=== PATIENT | female | born 1985 | race Caucasian/White ===

== ENCOUNTER → 2016-08-05 | Outpatient (REF) | payer OTHER ==
[~2016-08-05] MED LIST: ACET50TAOT PO; ALBU83IN INH; COLA100C PO; IBUP800T23 PO; PREN27TA3 PO; PULM0.25 INH; RHINSUS; TUMS500C PO; ZYRT1TAB PO
== END ==
LOC: M LAB REF 09:25
PROVIDERS: ATTEND Specialist
DX: Z12.4 Encounter for screening for malignant neoplasm of cervix (principal)

== ENCOUNTER → 2017-12-10 | Outpatient (CLI) | payer OTHER ==
[2017-12-10 13:23] LABS: BASO # 0.1 10^3/uL (0.0-0.2); BASO % 0.6 % (0.0-1.0); EOS # 0.2 10^3/uL (0.0-0.50); EOS % 2.6 % (0.0-3.0); HEMATOCRIT 42.2 % (36.0-47.0); HEMOGLOBIN 14.5 g/dl (12.0-15.5); IMMATURE GRANULOCYTE % 0.5 % (0-3.0); LYMPH # 1.9 10^3/uL (1.5-4.5); LYMPH % 22.9 % (24.0-44.0); MEAN CORPUSCULAR HEMOGLOBIN 30.5 pg (27.0-33.0); MEAN CORPUSCULAR HGB CONC 34.4 g/dl (32.0-36.5); MEAN CORPUSCULAR VOLUME 88.8 fl (80.0-96.0); MONO # 0.6 10^3/uL (0.0-0.8); NEUTROPHILS # 5.5 10^3/uL (1.8-7.7); NEUTROPHILS % 66.4 % (36.0-66.0); PLATELET COUNT, AUTOMATED 270 10^3/uL (150-450); RED BLOOD COUNT 4.75 10^6/uL (4.00-5.40); RED CELL DISTRIBUTION WIDTH 11.9 % (11.5-14.5); WHITE BLOOD COUNT 8.3 10^3/uL (4.0-10.0)
[2017-12-10 14:58] LABS: RUBELLA IgG QUALITATIVE IMMUNE (IMMUNE)
[2017-12-10 14:59] LABS: HBsAg Prenatal NEGATIVE (NEGATIVE)
[2017-12-10 15:27] LABS: HEPATITIS C VIRUS ABY INDEX 0.3 INDEX (<0.8)
[2017-12-10 15:27] LABS: CHLAMYDIA DNA AMPLIFICATION NEGATIVE (NEGATIVE); GC DNA AMPLIFICATION NEGATIVE (NEGATIVE); HIV 1&2 SCREEN CENTAUR NEGATIVE (NEGATIVE)
== END ==
LOC: M SMT 11:57
DX: Z34.81 Encounter for supervision of other normal pregnancy, first trimester (principal); Z3A.09 9 weeks gestation of pregnancy
CPT/HCPCS: 86762

== ENCOUNTER → 2018-06-19 | Outpatient (REF) | payer OTHER ==
[~2018-06-19] MED LIST changes: +ACET500T15 PO; -ACET50TAOT PO; -COLA100C PO; +COLA100C5 PO; +IBUP1TAB7 PO; -IBUP800T23 PO
== END ==
LOC: M LAB REF 12:55
PROVIDERS: ATTEND Advanced Practice Midwife
DX: Z34.83 Encounter for supervision of other normal pregnancy, third trimester (principal); Z3A.00 Weeks of gestation of pregnancy not specified

== ENCOUNTER 2018-07-19 10:40 | Inpatient (IN) | payer BC ==
[2018-07-19] VITALS (34 sets, daily range): BP systolic 97–144; BP diastolic 55–87
[~2018-07-19] VITALS: Ht 167.6 cm; Wt 101.2 kg
[2018-07-19] MEDS ORDERED: PENICILLIN G POTASSIUM IV 5 MU in D5W MINI-BAG PLUS 100 ML IV STA ×2 (11:17→12:11)
[2018-07-19] MEDS ORDERED: OXYTOCIN DRIP 30 UNITS in APPROPRIATE DILUENT 1 EA IV SCH (11:30)
[2018-07-19] MEDS: LR 1,000 ML IV SCH ×2 (11:55→16:49)
[2018-07-19 12:20] LABS: HEMATOCRIT 37.5 % (36.0-47.0); HEMOGLOBIN 13.2 g/dl (12.0-15.5); MEAN CORPUSCULAR HEMOGLOBIN 31.9 pg (27.0-33.0); MEAN CORPUSCULAR HGB CONC 35.2 g/dl (32.0-36.5); MEAN CORPUSCULAR VOLUME 90.6 fl (80.0-96.0); PLATELET COUNT, AUTOMATED 235 10^3/uL (150-450); RED BLOOD COUNT 4.14 10^6/uL (4.00-5.40); WHITE BLOOD COUNT 10.9 10^3/uL (4.0-10.0)
[2018-07-19] MEDS ORDERED: PULM0.5S INH (12:27)
[2018-07-19] MEDS ORDERED: PENICILLIN G POTASSIUM IV 2.5 MU in APPROPRIATE DILUENT 1 EA IV SCH (15:30)
[2018-07-19] MEDS: PENICILLIN G POTASSIUM IV 2.5 MU in APPROPRIATE DILUENT 1 EA IV SCH ×2 (16:16→20:37)
--- NOTE | 2018-07-19 19:23 | HPE ---
DATE OF ADMISSION: 07/19/2018 REASON FOR ADMISSION: Induction of labor. HISTORY OF PRESENT ILLNESS: Mrs. Meng is a 32-year-old 3, para 2 who presents at 40 weeks 6 days estimated gestational age by her last menstrual period confirmed by first trimester ultrasound here for induction of labor. course has been unremarkable. She initiated care in her first trimester and it has been appropriate throughout. PAST MEDICAL HISTORY: History of asthma. PAST SURGICAL HISTORY: She has had a section. MEDICATIONS: Includes: - Pulmicort - albuterol - vitamins ALLERGIES: SULFA and shellfish. OBSTETRICAL HISTORY: She is a 3, para 2. She has had a section for distress and this was followed by a vaginal after section. She is proven to 8 pounds 10 ounces. SOCIAL HISTORY: Denies any alcohol, tobacco or drug use during her . PHYSICAL EXAMINATION: Vital signs: stable. She is afebrile. General appearance: Well appearing, no acute distress. She has a category one rate tracing. Lungs: Clear to auscultation bilaterally. Cardiovascular: Heart regular rate and rhythm. Abdomen: Gravid, nontender, estimated weight (EFW) 3700 grams. Cervical exam: She is 3 cm dilated, 75% effaced, -3 station. LABORATORY DATA: labs: Blood type is O+, antibody screen is negative. Rubella is immune. RPR is nonreactive. Hepatitis surface antigen negative, HIV is negative. Hepatitis C is nonreactive. Chlamydia, gonorrhea screens are negative. She had a normal 1-hour Glucola. She is GBS positive. ASSESSMENT: 1. Mrs. Mott is a 32-year-old 3, para 2, at 40 weeks and 6 days estimated gestational age here for induction of labor. 2. Reassuring status. 3. History of section. PLAN: 1. Admit to labor and delivery, CBC, RPR, type and screen. 2. Patient has been thoroughly counseled throughout the as well as on admission regarding her mode of delivery. Discussed elective repeat section versus a trial of labor after section with risks and benefits of both. After consultation the patient desires to proceed with a trial of labor after section. Will initiate her induction with Pitocin. She has also been consented for emergency surgery, blood products, and anesthesia and desires to proceed with admission.
[2018-07-19] MEDS ORDERED: FENTANYL 2MCG/ML ROPIVACAINE 0.2% IN 0.9% NACL 100ML IVBAG As Ordered ONE (22:55)
[2018-07-19] MEDS ORDERED: LACTATED RINGER'S 1000 ML IV PRN (23:30)
[2018-07-19] MEDS ORDERED: REFRIGERATOR IV KEYS XX PRN (23:30)
[2018-07-19] MEDS ORDERED: EPIDURAL COMMENT XX SCH (23:30)
[2018-07-19] MEDS ORDERED: ONDANSETRON 4MG/2ML VIAL (J2405) IV PRN (23:30)
[2018-07-19] MEDS ORDERED: FENTANYL/ROPIVACAINE/NACL BAG 100 ML EPIDURAL SCH (23:30)
[2018-07-19] MEDS ORDERED: diphenhydrAMINE INJ 50MG/ML VIAL (J1200) IV PRN (23:30)
[2018-07-19] MEDS ORDERED: NALOXONE INJ 0.4 MG/1 ML VIAL (J2310) IV PRN (23:30)
[2018-07-19] MEDS ORDERED: EPIDURAL/PCA KEYS XX PRN (23:30)
[2018-07-19] MEDS ORDERED: ePHEDrine SULFATE 25 MG/5 ML(5MG/ML) SYRINGE IV PRN (23:30)
[2018-07-20] VITALS (25 sets, daily range): BP systolic 96–153; BP diastolic 51–81
[2018-07-20] MEDS: PENICILLIN G POTASSIUM IV 2.5 MU in APPROPRIATE DILUENT 1 EA IV SCH ×2 (00:30→06:48)
[2018-07-20] MEDS: LR 1,000 ML IV SCH (06:51)
[2018-07-20] MEDS ORDERED: OXYTOCIN DRIP 30 UNITS in APPROPRIATE DILUENT 1 EA IV SCH (10:01)
[2018-07-20] MEDS ORDERED: MEASLES,MUMPS,RUBELLA VACCINE INJ (MMR-II) (90707) SC SCH (10:15)
[2018-07-20] MEDS ORDERED: RHOGAM 300 MCG (1500 IU) INJ (J2790) IM SCH (10:15)
[2018-07-20] MEDS ORDERED: METHYLERGONOVINE MALEATE 0.2 MG TAB PO PRN (10:15)
[2018-07-20] MEDS ORDERED: DOCUSATE SODIUM 100 MG CAP PO PRN (10:15)
[2018-07-20] MEDS ORDERED: ANUSOL HC CREAM 30GM TOP PRN (10:15)
[2018-07-20] MEDS ORDERED: ACETAMINOPHEN 500 MG TAB PO PRN (10:15)
--- NOTE | 2018-07-20 10:33 | DNPDOC ---
[facility] Delivery Note Delivery Note DATE OF DELIVERY: 07/20/2018 at 0931 PREDELIVERY DIAGNOSIS: 41-0/7 weeks' gestation and labor. POST DELIVERY DIAGNOSIS: Delivered. PROCEDURE: Spontaneous vaginal delivery. PATHOLOGICAL TECHNICIAN: Sierra De La Garza CNM, ALONZO ANESTHESIA: epidural ESTIMATED BLOOD LOSS: 250 mL. FINDINGS: 8 pounds 7 ounces; 3840 grams; female infant, Score 9/9, ; prolonged 2nd stage. DELIVERY SUMMARY: Patient is a 22-year-old female who is now a who presented to L&D for an IOL. She received IV Pitocin for her induction and an epidural for pain management. The patient progressed to fully dilated at 0358. She started pushing at 0430 and stopped at 0633. At this time she received an epidural bolus to help with pain and was able to rest until 0808 when pushing was resumed. She pushed to a living female in the OA position with restitution to ROT at 0931. The anterior shoulder delivered with ease and the corpus immediately followed. Meconium noted with delivery of the body. The baby was placed [id number] active and crying with stimulation. The cord was clamped x2 after pulsation ceased and cut by the FOB. The placenta delivered spontaneously and intact at 0931. The vagina and perineum were inspected and found to have a 2nd degree perineal laceration that was repaired with a 3.[address]-1. Mom plans to breastfed her . Both mom and baby were in stable condition. SIERRA DE LA GARZA CNM Jul 20, 2018 10:33
[2018-07-20] MEDS: IBUPROFEN 800 MG TAB PO PRN (14:16)
[2018-07-20] MEDS: DIBUCAINE 1% OINTMENT 30GM TOP PRN (16:00)
[2018-07-21] MEDS: DIBUCAINE 1% OINTMENT 30GM TOP PRN (05:00)
[2018-07-21] MEDS: IBUPROFEN 800 MG TAB PO PRN (05:00)
[2018-07-21 06:01] VITALS: BP 135/73
[2018-07-21] MEDS ORDERED: PRENATAL VITAMINS CHEWABLE TABLET PO SCH (09:00)
== END 2018-07-21 12:35 | disposition home or self-care (01) | DRG 560 ==
LOC: M LDI 10:40 → M OBS 07-20 15:05
PROVIDERS: ADMIT Obstetrics & Gynecology; ATTEND Obstetrics & Gynecology
PROC: 3E033VJ Introduction of Other Hormone into Peripheral Vein, Percutaneous Approach (ICD-10-PCS; 2018-07-19)
PROC: 10E0XZZ Delivery of Products of Conception, External Approach (ICD-10-PCS; principal; 2018-07-20)
PROC: 0KQM0ZZ Repair Perineum Muscle, Open Approach (ICD-10-PCS; 2018-07-20)
DX: O48.0 Post-term pregnancy (principal); O34.211 Maternal care for low transverse scar from previous cesarean delivery; Z37.0 Single live birth; Z3A.40 40 weeks gestation of pregnancy; O70.1 Second degree perineal laceration during delivery

== ENCOUNTER → 2019-01-22 | Outpatient (REF) | payer BC ==
[~2019-01-22] MED LIST changes: +PULM0.5S INH
== END ==
LOC: M LAB REF 17:04
PROVIDERS: ATTEND Advanced Practice Midwife
DX: R30.0 Dysuria (principal)

== ENCOUNTER → 2019-02-15 | Outpatient (REF) | payer BC ==
[2019-02-15 18:21] LABS: CHLAMYDIA DNA AMPLIFICATION NEGATIVE (NEGATIVE); GC DNA AMPLIFICATION NEGATIVE (NEGATIVE)
[2019-02-19 14:22] LABS: HPV LOW VOL RFLX Negative (Negative)
== END ==
LOC: M LAB REF 15:08
PROVIDERS: ATTEND Specialist
DX: Z12.4 Encounter for screening for malignant neoplasm of cervix (principal); Z11.3 Encounter for screening for infections with a predominantly sexual mode of transmission
CPT/HCPCS: 87491; 87591; 87624; G0123

== ENCOUNTER → 2020-06-21 | Outpatient (REF) | payer BC | LOC: M SFHCWAGY 19:03 | PROVIDERS: ATTEND Specialist | DX: Z01.419 Encounter for gynecological examination (general) (routine) without abnormal findings (principal) ==

== ENCOUNTER → 2023-05-26 | Outpatient (CLI) | payer BC ==
[~2023-05-26] MED LIST changes: +ALBU2.5V10 INH; -ALBU83IN INH
[2023-05-26 14:17] LABS: HEMATOCRIT 37.5 % (36.0-47.0); HEMOGLOBIN 13.4 g/dl (12.0-15.5); MEAN CORPUSCULAR HEMOGLOBIN 31.5 pg (27.0-33.0); MEAN CORPUSCULAR HGB CONC 35.7 g/dl (32.0-36.5); MEAN CORPUSCULAR VOLUME 88.2 fl (80.0-96.0); PLATELET COUNT, AUTOMATED 264 10^3/uL (150-450); RED BLOOD COUNT 4.25 10^6/uL (4.00-5.40); WHITE BLOOD COUNT 9.2 10^3/uL (4.0-10.0)
[2023-05-26 15:12] LABS: HIV 1&2 SCREEN NEGATIVE (NEGATIVE)
[2023-05-26 15:20] LABS: HEPATITIS C VIRUS ABY INDEX < 0.02 INDEX (<0.8)
[2023-05-26 16:15] LABS: CHLAMYDIA DNA AMPLIFICATION NEGATIVE (NEGATIVE); GC DNA AMPLIFICATION NEGATIVE (NEGATIVE)
== END ==
LOC: M PLALAB 11:31
PROVIDERS: ATTEND Specialist
DX: Z34.81 Encounter for supervision of other normal pregnancy, first trimester (principal)

== ENCOUNTER → 2023-11-03 | Outpatient (REF) | payer BC | LOC: M SFHCWAGY 09:48 | PROVIDERS: ATTEND Specialist | DX: Z36.85 Encounter for antenatal screening for Streptococcus B (principal); Z3A.36 36 weeks gestation of pregnancy ==

== ENCOUNTER → 2024-03-23 | Outpatient (CLI) | payer BC ==
[~2024-03-23] MED LIST changes: +FLON27.5 NARES; +IBUP80TA PO; +OXYC1TAB23 PO; +ZYRTTAB8 PO
== END ==
LOC: M WHC 10:07
PROVIDERS: ATTEND Specialist
DX: Z12.31 Encounter for screening mammogram for malignant neoplasm of breast (principal); Z53.9 Procedure and treatment not carried out, unspecified reason

== ENCOUNTER → 2024-03-23 | Outpatient (REF) | payer BC ==
[2024-03-26 14:07] LABS: HPV APTIMA Not Detected (Not Detected)
== END ==
LOC: M SFHCWAGY 15:03
PROVIDERS: ATTEND Specialist
DX: Z12.4 Encounter for screening for malignant neoplasm of cervix (principal)
CPT/HCPCS: 87624; G0123

== ENCOUNTER → 2025-03-25 | Outpatient (REF) | payer BC ==
[2025-03-29 13:37] LABS: HPV APTIMA Not Detected (Not Detected)
== END ==
LOC: M PLALAB 09:01
PROVIDERS: ATTEND Specialist
DX: Z01.419 Encounter for gynecological examination (general) (routine) without abnormal findings (principal); R87.611 Atypical squamous cells cannot exclude high grade squamous intraepithelial lesion on cytologic smear of cervix (ASC-H)
CPT/HCPCS: 87624; G0123

== ENCOUNTER → 2025-03-25 | Outpatient (CLI) | payer BC | LOC: M WHC 08:50 | PROVIDERS: ATTEND Specialist | DX: Z12.31 Encounter for screening mammogram for malignant neoplasm of breast (principal) ==